=== PATIENT | female | born 1990 | race Caucasian/White ===

== ENCOUNTER 2020-12-17 08:42 | Emergency (ER) | payer BC, OTHER ==
[2020-12-17] MEDS ORDERED: KETOROLAC 30 MG/ML INJ ONE (10:59)
[2020-12-17 11:05] LABS: Basophils % 0.1 % (0-1.3); Hematocrit 39.4 % (36.0-45.0); Lymphocytes % 8.1 % (15.3-44.8); MPV 8.6 fL (7.6-11.3); RBC Red Blood Cell Count 4.38 M/uL (3.86-4.86)
[2020-12-17 11:24] LABS: Potassium 4.3 mmol/L (3.5-5.1)
[2020-12-17] MEDS ORDERED: NA CHLORIDE 0.9% 500 ML ONE (11:42)
[2020-12-17 12:38] LABS: Urine Blood 2+ (Negative); Urine Glucose Negative (Negative); Urine Protein Negative (Negative); Urine pH 8.5 (5.0-7.0)
[2020-12-17 12:50] LABS: Urine Bacteria 20-50 /HPF (<20)
--- NOTE | 2020-12-17 13:10 | RAD REPORT ---
EXAM DESCRIPTION: CT - Stone Protocol - 12/17/2020 12:51 pm CLINICAL HISTORY: Abdominal pain. Left flank pain COMPARISON: None. TECHNIQUE: Computed axial tomography of the abdomen pelvis was obtained without oral or IV contrast. Lack of IV and oral contrast limits evaluation of solid organs, bowel, and vessels. Coronal reformat nav images were obtained and reviewed. All CT scans are performed using dose optimization technique as appropriate and may include automated exposure control or mA/KV adjustment according to patient size. FINDINGS: 2 millimeter calculus left kidney. Mild to moderate left hydronephrosis. 4 millimeter calc ulus proximal left ureter. 3 millimeter calcification left pelvis. A right renal calculus is not seen . The liver, spleen, pancreas and adrenals appear grossly normal There is no evidence of diverticulitis. The appendix appears normal IMPRESSION: 4 millimeter calculus proximal left ureter resulting in mild to moderate left hydronephr osis. 3 millimeter calculus distal left ureter near the UVJ. It is uncertain whether this represents an add itional ureteral calculus or phlebolith
--- NOTE | 2020-12-17 13:19 | ER ---
Nurse's Notes [facility] Name: Kiley Ledezma Age: 30 yrs Sex: Female : 1990 Arrival Date: 12/17/2020 Time: 08:44 Bed 12 Private MD: Diagnosis: Hydronephrosis with renal and ureteral calculous obstruction Presentation: 12/17 08:46 Chief complaint: Patient states: "I am having left sided pain that sort of comes around jd3 to the front. I am also have really bad nausea vomiting. I was also having some trouble using the restroom this morning.". Coronavirus screen: At this time, the client does not indicate any symptoms associated with coronavirus-19. Ebola Screen: Patient negative for fever greater than or equal to 101.5 degrees Fahrenheit, and additional compatible Ebola Virus Disease symptoms. Initial Sepsis Screen: Does the patient meet any 2 criteria? No. Patient's initial sepsis screen is negative. Does the patient have a suspected source of infection? No. Patient's initial sepsis screen is negative. Risk Assessment: Do you want to hurt yourself or someone else? Patient reports no desire to harm self or others. Onset of symptoms was December 17, 2020. 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 - Social history:: Smoking status: Patient denies any tobacco usage or history of. Screenin:37 Abuse screen: Denies threats or abuse. Nutritional screening: No deficits noted. vg1 Tuberculosis screening: No symptoms or risk factors identified. Fall Risk No fall in past 12 months (0 pts). No secondary diagnosis (0 pts). IV access (20 points). Ambulatory Aid- None/Bed Rest/Nurse Assist (0 pts). Gait- Normal/Bed Rest/Wheelchair (0 pts) Mental Status- Oriented to own ability (0 pts). Total Solomon Fall Scale indicates No Risk (0-24 pts). Assessment: 10:35 General: Appears in no apparent distress. comfortable, Behavior is calm, cooperative. vg1 Pain: Complains of pain in Left flank Pain currently is 0 out of 10 on a pain scale. at worst was 7 out of 10 on a pain scale. Pain began 12/14/20. Neuro: Level of Consciousness is awake, alert, obeys commands, Oriented to person, place, time, situation. Cardiovascular: Patient's skin is warm and dry. Respiratory: Airway is patent Respiratory effort is even, unlabored. GI: Reports nausea, vomiting, took Magnesium Citrate this morning around 0600. Pt thought maybe was constipated. : Denies burning with urination, inability to void, pain. EENT: No signs and/or symptoms were reported regarding the EENT system. Derm: Skin is intact, Skin is pale. Musculoskeletal: Circulation, motion, and sensation intact. 11:55 Reassessment: Patient appears in no apparent distress at this time. Patient and/or vg1 family updated on plan of care and expected duration. Pain level reassessed. Patient is alert, oriented x 3, equal unlabored respirations, skin warm/dry/pink. Patient denies pain at this time. Vital Signs: 08:48 BP 108 / 53; Pulse 83; Resp 17 S; Temp 97.8(TE); Pulse Ox 99% on R/A; Weight 72.57 kg jd3 (R); Height 5 ft. 0 in. (152.40 cm) (R); Pain 8/10; 10:37 BP 107 / 64; Pulse 84; Resp 16; Pulse Ox 100% on R/A; vg1 11:55 BP 113 / 57; Pulse 88; Resp 14; Pulse Ox 100% ; vg1 12:07 BP 90 / 61; Pulse 78; Pulse Ox 100% on R/A; jp3 12:30 BP 98 / 64; Pulse 80; Resp 14; Pulse Ox 100% on R/A; vg1 08:48 Body Mass Index 31.25 (72.57 kg, 152.40 cm) jd3 ED Course: 08:44 Patient arrived in ED. ds1 08:47 Triage completed. jd3 08:49 Arm band placed on. jd3 10:25 Trista Acosta, MARCELLUS is Primary Nurse. vg1 10:28 Darwin Hess PA is PHCP. jr8 10:28 Mookie Jack MD is Attending Physician. jr8 10:37 Patient has correct armband on for positive identification. Call light in reach. vg1 10:52 Initial lab(s) drawn, by me, sent to lab. Inserted saline lock: 20 gauge in right vg1 antecubital area, using aseptic technique. Blood collected. 10:55 Radiology exam delayed due to test not completed at this time. ag6 12:08 PO fluids given. Diet: Patient given water. Tolerated well. jp3 12:29 Radiology exam delayed due to test not completed at this time. ag6 12:33 Urine collected: clean catch specimen, clear, alex colored, Amount Voided: 50mL. jp3 12:33 Patient maintains SpO2 saturation greater than 95% on room air. jp3 12:51 CT Stone Protocol In Process Unspecified. EDMS 13:19 Kel Last MD is Referral Physician. jr8 13:43 No provider procedures requiring assistance completed. IV discontinued, intact, vg1 bleeding controlled, No redness/swelling at site. Pressure dressing applied. Administered Medications: 10:53 Drug: TORadol - (ketorolac) 15 mg Route: IVP; Site: right antecubital; vg1 13:22 Follow up: Response: No adverse reaction; Pain is decreased vg1 11:24 Drug: NS 0.9% 500 ml Route: IV; Rate: bolus; Site: right antecubital; vg1 12:06 Follow up: IV Status: Completed infusion; IV Intake: 500ml vg1 13:31 Drug: Rocephin (cefTRIAXone) 1 grams Route: IV; Rate: calculated rate; Site: right vg1 antecubital; 13:44 Follow up: IV Status: Completed infusion vg1 Point of Care Testing: Urine : 12:43 hCG Reading: Negative; Control Reading: Positive; jp3 Intake: 12:06 IV: 500ml; Total: 500ml. vg1 Outcome: 13:19 Discharge ordered by . jr8 13:43 Discharged to home ambulatory, with family. vg1 13:43 Condition: stable 13:43 Discharge instructions given to patient, Instructed on discharge instructions, follow up and referral plans. medication usage, Demonstrated understanding of instructions, follow-up care, medications, Prescriptions given X 3. 13:43 Patient left the ED. vg1 Addendum: 12/20/2020 07:33 Addendum: Culture Results: Positive urine culture. No further action required. Bacteria s v sensitive to prescribed antibiotic. Signatures: Dispatcher [employer] EDDeepthi Mccray, RN RN Keshia Roldan ds1 Darwin Hess PA PA jr8 Davies, Jonathon, RN RN jd3 Antwan Ragland [facility] Paulette Helton [facility] Trista Acosta RN RN vg1 Corrections: (The following items were deleted from the chart) 12/17 08:50 08:46 Chief complaint: Patient states: "I am having left sided pain that sort of comes jd3 around to the front. I am also have really bad nausea vomiting." jd3
--- NOTE | 2020-12-17 13:19 | EDPHYS ---
Physician Documentation [facility] Name: Kiley Ledezma Age: 30 yrs Sex: Female : 1990 Arrival Date: 12/17/2020 Time: 08:44 Bed 12 Private MD: ED Physician Mookie Jack HPI: 12/17 11:28 This 30 yrs old Female presents to ER via Ambulatory with complaints of jr8 Kidney Pain. 11:28 The patient complains of pain in the left flank. The pain radiates to the abdomen. jr8 Onset: The symptoms/episode began/occurred acutely, 2 day(s) ago. Modifying factors: The symptoms are alleviated by nothing. the symptoms are aggravated by nothing. Associated signs and symptoms: Pertinent positives: nausea, vomiting. Severity of pain: At its worst the pain was moderate in the emergency department the pain has resolved. The patient has not experienced similar symptoms in the past. The patient has not recently seen a physician. 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 - Social history:: Smoking status: Patient denies any tobacco usage or history of. ROS: 11:28 Eyes: Negative for injury, pain, redness, and discharge, ENT: Negative for injury, jr8 pain, and discharge, Neck: Negative for injury, pain, and swelling, Cardiovascular: Negative for chest pain, palpitations, and edema, Respiratory: Negative for shortness of breath, cough, wheezing, and pleuritic chest pain, MS/Extremity: Negative for injury and deformity, Skin: Negative for injury, rash, and discoloration, Neuro: Negative for headache, weakness, numbness, tingling, and seizure. 11:28 Abdomen/GI: Positive for abdominal pain, nausea and vomiting, Negative for diarrhea. 11:28 Back: Positive for flank pain, on the left. Exam: 11:28 Constitutional: This is a well developed, well nourished patient who is awake, alert, jr8 and in no acute distress. ENT: Nares patent. No nasal discharge, no septal abnormalities noted. Tympanic membranes are normal and external auditory canals are clear. Oropharynx with no redness, swelling, or masses, exudates, or evidence of obstruction, uvula midline. Mucous membranes moist. Neck: Trachea midline, no thyromegaly or masses palpated, and no cervical lymphadenopathy. Supple, full range of motion without nuchal rigidity, or vertebral point tenderness. No Meningismus. Cardiovascular: Regular rate and rhythm with a normal S1 and S2. No gallops, murmurs, or rubs. Normal PMI, no JVD. No pulse deficits. Respiratory: Lungs have equal breath sounds bilaterally, clear to auscultation and percussion. No rales, rhonchi or wheezes noted. No increased work of breathing, no retractions or nasal flaring. Abdomen/GI: Soft, non-tender, with normal bowel sounds. No distension or tympany. No guarding or rebound. No evidence of tenderness throughout. Back: No spinal tenderness. No costovertebral tenderness. Full range of motion. Skin: Warm, dry with normal turgor. Normal color with no rashes, no lesions, and no evidence of cellulitis. MS/ Extremity: Pulses equal, no cyanosis. Neurovascular intact. Full, normal range of motion. Neuro: Awake and alert, GCS 15, oriented to person, place, time, and situation. Motor strength 5/5 in all extremities. Sensory grossly intact. Vital Signs: 08:48 BP 108 / 53; Pulse 83; Resp 17 S; Temp 97.8(TE); Pulse Ox 99% on R/A; Weight 72.57 kg j (R); Height 5 ft. 0 in. (152.40 cm) (R); Pain 8/10; 10:37 BP 107 / 64; Pulse 84; Resp 16; Pulse Ox 100% on R/A; vg1 11:55 BP 113 / 57; Pulse 88; Resp 14; Pulse Ox 100% ; vg1 12:07 BP 90 / 61; Pulse 78; Pulse Ox 100% on R/A; jp3 12:30 BP 98 / 64; Pulse 80; Resp 14; Pulse Ox 100% on R/A; vg1 08:48 Body Mass Index 31.25 (72.57 kg, 152.40 cm) [facility] MDM: 10:28 Patient medically screened. jr8 13:18 Data reviewed: vital signs, nurses notes, lab test result(s), radiologic studies, CT [facility] scan. Data interpreted: Pulse oximetry: on room air is 100 %. Interpretation: normal. Counseling: I had a detailed discussion with the patient and/or guardian regarding: the historical points, exam findings, and any diagnostic results supporting the discharge/admit diagnosis, lab results, radiology results, the need for outpatient follow up, a urologist, to return to the emergency department if symptoms worsen or persist or if there are any questions or concerns that arise at home. 13:35 ED course: [place] without any concerning finding . [facility] 12/17 10:29 Order name: Basic Metabolic Panel; Complete Time: 11:25 [facility] 12/17 10:29 Order name: CBC with Diff; Complete Time: 13:36 [facility] 12/17 10:29 Order name: Urine Microscopic Only; Complete Time: 13:17 [facility] 12/17 12:38 Order name: Urine Dipstick-Ancillary; Complete Time: 13:17 [facility] 12/17 12:46 Order name: Urine --Ancillary (enter results); Complete Time: 13:17 12/17 12:50 Order name: Urine Culture [facility] 12/17 10:29 Order name: IV Saline Lock; Complete Time: 10:56 [facility] 12/17 10:29 Order name: Labs collected and sent; Complete Time: 10:56 [facility] 12/17 10:29 Order name: Urine Test (obtain specimen); Complete Time: 12:44 [facility] 12/17 10:29 Order name: CT Stone Protocol; Complete Time: 13:17 [facility] 12/17 13:22 Order name: CBC Smear Scan; Complete Time: 13:36 [facility] 12/17 10:29 Order name: Urine Dipstick-Ancillary (obtain specimen); Complete Time: 12:44 [facility] Administered Medications: 10:53 Drug: TORadol - (ketorolac) 15 mg Route: IVP; Site: right antecubital; vg1 13:22 Follow up: Response: No adverse reaction; Pain is decreased vg1 11:24 Drug: NS 0.9% 500 ml Route: IV; Rate: bolus; Site: right antecubital; vg1 12:06 Follow up: IV Status: Completed infusion; IV Intake: 500ml vg1 13:31 Drug: Rocephin (cefTRIAXone) 1 grams Route: IV; Rate: calculated rate; Site: right vg1 antecubital; 13:44 Follow up: IV Status: Completed infusion vg1 Point of Care Testing: Urine : 12:43 hCG Reading: Negative; Control Reading: Positive; jp3 Disposition: 18:49 Co-signature as Attending Physician, Mookie Jack MD I agree with the assessment and kdr plan of care. Disposition: 12/17/20 13:19 Discharged to Home. Impression: Hydronephrosis with renal and ureteral calculous obstruction. - Condition is Stable. - Discharge Instructions: Kidney Stones, Hydronephrosis. - Prescriptions for Cipro 500 mg Oral Tablet - take 1 tablet by ORAL route every 12 hours for 7 days; 14 tablet. Tylenol- Codeine #3 300-30 mg Oral Tablet - take 2 tablets by ORAL route every 4-6 hours As needed; 20 tablet. Zofran 4 mg Oral Tablet - take 1 tablet by ORAL route every 12 hours As needed; 20 tablet. - Medication Reconciliation Form, Thank You Letter, Antibiotic Education, Prescription Opioid Use, Work release form form. - Follow up: Kel Last MD; When: 5 - 6 days; Reason: Recheck today's complaints, Continuance of care, Re-evaluation by your physician. - Problem is new. - Symptoms have improved. Signatures: Dispatcher [employer] EDMS Mookie Jack MD MD [facility] Darwin Hess PA PA jr8 Andi Porter RN RN jTrista Hart RN RN vg1 Corrections: (The following items were deleted from the chart) 13:43 13:19 12/17/2020 13:19 Discharged to Home. Impression: Hydronephrosis with renal and vg1 ureteral calculous obstruction. Condition is Stable. Forms are Medication Reconciliation Form, Thank You Letter, Antibiotic Education, Prescription Opioid Use. Follow up: Kel Last; When: 5 - 6 days; Reason: Recheck today's complaints, Continuance of care, Re-evaluation by your physician. Problem is new. Symptoms have improved. jr8
[2020-12-17 13:22] LABS: Blood Morphology Comment NOT SEEN (NOT SEEN); Platelet Estimate ADEQ; White Blood Cell Scan OK (OK)
[2020-12-17] MEDS ORDERED: CEFTRIAXONE/SWI 1gm 1 GM/10 ML SYR ONE (13:46)
[2020-12-17 14:14] VITALS: TEMP 97.8
[2020-12-17 14:15] VITALS: O2SAT 100
[2020-12-17 14:19] VITALS: BP 98/64
== END 2020-12-17 13:43 | disposition home or self-care (01) ==
LOC: ER 08:42
DX: N13.2 Hydronephrosis with renal and ureteral calculous obstruction (principal)
CPT/HCPCS: 96361; 87088; 85025; 87086; 80048; 36415; 81025; 87077; 87186; 76377; 74176; 96375; 96374; 99284; J0696; J7040; 81003; 81015